=== PATIENT | female | born 1945 | race Caucasian/White ===

== ENCOUNTER 2017-05-11 09:23 | Emergency (ER) | payer OTHER, BC ==
[2017-05-11 09:27] VITALS: TEMP 98.4; BMI 26.4
--- NOTE | 2017-05-11 10:13 | PDOC ---
History of Present Illness - General History Source: Patient Exam Limitations: No Limitations - History of Present Illness Initial Comments: 05/11/17 10:22 The patient is a 71 year old female, with no significant past medical history, who presents to the emergency department with, two days of left lower abdominal pain. She reports the abdominal pain to occasionally radiate to the right side. She reports to have a dry cough, which has resolved. She denies recent fevers, chills, headache or dizziness. She denies recent nausea, vomit, diarrhea or constipation. She denies recent dysuria, frequency, urgency or hematuria. She denies recent chest pain or shortness of breath. Allergies: NKA Past surgical history: None reported. Social history: Nonsmoker. Denies EtOH use and recreational drug use. Primary Care Physician: Dr. Bryce Johnson <Mildred Perez - Last Filed: 05/11/17 10:22> <Georgia Krishnamurthy - Last Filed: 05/13/17 10:25> - General Chief Complaint: Pain Stated Complaint: PAIN Time Seen by Provider: 05/11/17 09:54 Past History <Mildred Perez - Last Filed: 05/11/17 10:22> - Past Medical History COPD: No HTN: Yes Hypercholesterolemia: Yes - Suicide/Smoking/Psychosocial Hx Smoking History: Never smoked Hx Alcohol Use: No Drug/Substance Use Hx: No Substance Use Type: None <Georgia Krishnamurthy - Last Filed: 05/13/17 10:25> - Past Medical History Allergies/Adverse Reactions: Allergies Allergy/AdvReac Type Severity Reaction Status Date / Time No Known Allergies Allergy Verified 05/11/17 09:27 Home Medications: Ambulatory Orders Ascorbate Calcium [Vitamin C] 1 tab PO DAILY 05/11/17 Aspirin [[place] Aspirin] 1 tab PO DAILY 05/11/17 Cholecalciferol (Vitamin D3) [Vitamin D3 -] 1 tab PO DAILY 05/11/17 Levofloxacin [Levaquin] 750 mg PO DAILY #10 tab 05/11/17 Lisinopril 1 tab PO DAILY 05/11/17 Metronidazole 500 mg PO TID #30 tablet 05/11/17 Risedronate Sodium [Actonel] 30 mg PO DAILY 05/11/17 Risedronate Sodium [Risedronate Sodium Dr] 1 tab PO WEEKLY 05/11/17 Review of Systems - Review of Systems Able to Perform ROS?: Yes Comments:: 05/11/17 10:22 GENERAL/CONSTITUTIONAL: No fever or chills. No weakness. HEAD, EYES, EARS, NOSE AND THROAT: No change in vision. No ear pain or discharge. No sore throat. CARDIOVASCULAR: No chest pain or shortness of breath. RESPIRATORY: No cough, wheezing, or hemoptysis. GASTROINTESTINAL: No nausea, vomiting, diarrhea or constipation. ABDOMEN: +Left Lower Abdominal Pain. GENITOURINARY: No dysuria, frequency, or change in urination. MUSCULOSKELETAL: No joint or muscle swelling or pain. No neck or back pain. SKIN: No rash NEUROLOGIC: No headache, vertigo, loss of consciousness, or change in strength/ sensation. ENDOCRINE: No increased thirst. No abnormal weight change. HEMATOLOGIC/LYMPHATIC: No anemia, easy bleeding, or history of blood clots. ALLERGIC/IMMUNOLOGIC: No hives or skin allergy. All Other Systems: Reviewed and Negative <Mildred Perez - Last Filed: 05/11/17 10:22> *Physical Exam - Vital Signs Last Vital Signs Temp Pulse Resp BP Pulse Ox 98.4 F 88 20 154/92 99 05/11/17 09:24 05/11/17 09:24 05/11/17 09:24 05/11/17 09:24 05/11/17 09:24 <Mildred Perez - Last Filed: 05/11/17 10:22> - Vital Signs Last Vital Signs Temp Pulse Resp BP Pulse Ox 98.4 F 88 20 154/92 99 05/11/17 09:24 05/11/17 09:24 05/11/17 09:24 05/11/17 09:24 05/11/17 09:24 - Physical Exam Comments: GENERAL: Awake, alert, and fully oriented, in no acute distress. Well-appearing. HEAD: No signs of trauma EYES: PERRLA, EOMI, sclera anicteric, conjunctiva clear ENT: Auricles normal inspection, hearing grossly normal, nares patent, oropharynx clear without exudates. Moist mucosa NECK: Normal ROM, supple, no lymphadenopathy, JVD, or masses LUNGS: Breath sounds equal, clear to auscultation bilaterally. No wheezes, and no crackles HEART: Regular rate and rhythm, normal S1 and S2, no murmurs, rubs or gallops ABDOMEN: Soft, +LLQ with guarding, normoactive bowel sounds. No rebound. No masses EXTREMITIES: Normal range of motion, no edema. No clubbing or cyanosis. No cords, erythema, or tenderness NEUROLOGICAL: Cranial nerves II through XII grossly intact. Normal speech, normal gait SKIN: Warm, Dry, normal turgor, no rashes or lesions noted. <Georgia Krishnamurthy - Last Filed: 05/13/17 10:25> ED Treatment Course - LABORATORY CBC & Chemistry Diagram: 05/11/17 10:39 05/11/17 10:39 <Georgia Krishnamurthy - Last Filed: 05/13/17 10:25> Medical Decision Making - Medical Decision Making Pt well-appearing, tolerating PO, ambulatory. Will treat for diverticulitis as an outpatient. <Georgia Krishnamurthy - Last Filed: 05/13/17 10:25> *DC/Admit/Observation/Transfer - Attestations Scribe Attestion: 05/11/17 10:22 Documentation prepared by Mildred Perez, acting as medical cash poster for Georgia Krishnamurthy MD. <Mildred Perez - Last Filed: 05/11/17 10:22> - Discharge Dispostion Admit: No <Georgia Krishnamurthy - Last Filed: 05/13/17 10:25> Diagnosis at time of Disposition: Diverticulitis - Discharge Dispostion Disposition: HOME Condition at time of disposition: Stable - Prescriptions Prescriptions: Levofloxacin [Levaquin] 750 mg PO DAILY #10 tab Metronidazole 500 mg PO TID #30 tablet - Referrals Referrals: Bryce Johnson MD [Primary Care Provider] - - Patient Instructions Printed Discharge Instructions: DI for Diverticulitis - Post Discharge Activity
[2017-05-11 10:55] LABS: URINE APPEARANCE CLEAR; URINE BILIRUBIN NEGATIVE (NEGATIVE); URINE BLOOD NEGATIVE (NEGATIVE); URINE COLOR LTYELLOW; URINE GLUCOSE (UA) NEGATIVE (NEGATIVE); URINE KETONE NEGATIVE (NEGATIVE); URINE LEUK ESTERASE NEGATIVE (NEGATIVE); URINE NITRITE NEGATIVE (NEGATIVE); URINE PROTEIN NEGATIVE (NEGATIVE); URINE UROBILINOGEN NEGATIVE mg/dL (0.2-1.0)
[2017-05-11 11:23] LABS: BASOPHIL 0.6 % (0-2.0); EOSINOPHIL 0.7 % (0-4.5); MCH 28.3 pg (25.7-33.7); MCHC 32.3 g/dl (32.0-36.0); MEAN CELL VOLUME 87.4 fl (80-96); MEAN PLT VOLUME 7.8 fl (7.5-11.1); NEUTROPHILS 76.3 % (42.8-82.8); PLATELET COUNT 354 K/MM3 (134-434); RDW 13.7 % (11.6-15.6)
[2017-05-11 12:47] LABS: ALBUMIN 3.5 g/dl (3.4-5.0); ALK PHOS 91 U/L (45-117); ANION GAP 8 (8-16); BILIRUBIN,TOTAL 0.5 mg/dL (0.2-1.0); CALCIUM 8.9 mg/dL (8.5-10.1); CO2 26 mmol/L (21-32); CREATININE 0.5 mg/dL (0.55-1.02); GLUCOSE,RANDOM 80 mg/dL (74-106); SGPT/ALT 22 U/L (12-78); TOT PROT 6.9 g/dl (6.4-8.2)
[2017-05-11 12:49] LABS: SGOT/AST 34 U/L (15-37)
[2017-05-11] MEDS ORDERED: ACETAMINOPHEN 325 MG TABLET (FP) PO ONE (14:00)
[2017-05-11] MEDS ORDERED: metroNIDAZOLE 250 MG TABLET PO ONE (14:00)
[2017-05-11] MEDS ORDERED: LEVOFLOXACIN 250 MG TABLET (FP) PO ONE (14:00)
[2017-05-11] MEDS ORDERED: ACETAMINOPHEN 325 MG TABLET (FP) ONE (14:05)
[2017-05-11] MEDS ORDERED: LEVOFLOXACIN 500 MG TABLET (FP) ONE (14:05)
[2017-05-11] MEDS ORDERED: LEVOFLOXACIN 250 MG TABLET (FP) ONE (14:05)
[2017-05-11] MEDS ORDERED: metroNIDAZOLE 250 MG TABLET ONE (14:05)
[2017-05-11 14:12] VITALS: BP 146/88; PULSE 85
[2017-05-11 19:34] LABS: URINE LEUK ESTERASE Negative (NEGATIVE)
== END 2017-05-11 14:12 | disposition home or self-care (01) ==
LOC: JER 09:23
DX: K57.92 Diverticulitis of intestine, part unspecified, without perforation or abscess without bleeding (principal); R05 Cough; I10 Essential (primary) hypertension; E78.00 Pure hypercholesterolemia, unspecified
CPT/HCPCS: 36415; 71010-TC; 74177-TC; 80053; 81003; 83690; 85025; 87086; 99283-25